=== PATIENT | male | born 1975 | race African-American/Black ===

== ENCOUNTER 2020-12-10 08:21 | Outpatient (CLI) | payer OTHER ==
[2020-12-10 09:18] LABS: #Eosinphils 0.2 10x3/uL (0.0-0.5); #Monocytes 0.5 10x3/uL (0.0-1.1); #Neutrophils 2.4 10x3/uL (1.5-8.4); %Basophils 0.7 % (0.0-2.0); %Eosinophils 2.7 % (0.0-6.0); %Lymphocytes 44.5 % (18.0-47.0); %Monocytes 8.3 % (0.0-10.0); %Neutrophils 43.6 % (40.0-75.0); Hemoglobin 13.3 g/dL (13.5-17.5); Mean Corpuscular HGB CONC 31.1 g/dL (32.0-36.0); Mean Corpuscular Hemoglobin 24.1 pg (27.0-33.0); Mean Corpuscular Volume 77.5 fl (81.2-95.1); Mean Platelet Volume 8.9 fl (7.4-10.4); Platelet Count 297 10x3/uL (150-450); RBC Distribution Width 15.6 % (11.5-14.5); Red Blood Cell (RBC) Count 5.51 10x6/uL (4.32-5.72); White Blood Cell (WBC) Count 5.5 10x3/uL (3.5-10.5)
[2020-12-10 09:35] LABS: Anion Gap 11 mmol/L (10-20); BUN (Urea Nitrogen) 12 mg/dL (8.9-20.6); Calc. Creatinine Clearance 0 mL/min (70-130); Calcium 9.7 mg/dL (7.8-10.44); Carbon Dioxide 27 mmol/L (22-29); Chloride 104 mmol/L (98-107); Glucose 99 mg/dL (70-105); Potassium 4.1 mmol/L (3.5-5.1); Sodium 138 mmol/L (136-145)
[2020-12-10 16:59] LABS: SARS-CoV-2 PCR by NAA Not Detected (NotDetected)
== END 2020-12-10 08:22 | disposition home or self-care (01) ==
LOC: LABBT 08:21
PROVIDERS: ATTEND Surgery
DX: Z01.812 Encounter for preprocedural laboratory examination (principal); K43.2 Incisional hernia without obstruction or gangrene; Z20.822 Contact with and (suspected) exposure to COVID-19
CPT/HCPCS: 80048; 85025; U0003; U0005

== ENCOUNTER 2020-12-15 07:09 | Day surgery (SDC) | payer OTHER ==
[2020-12-11 10:51] VITALS: BMI 33.6
[2020-12-15] MEDS ORDERED: ceFAZolin 2 GM/DEX 5% 100 ML BAG ONE (08:15)
[2020-12-15] MEDS ORDERED: Midazolam HCl 2 mg/2 ml Vial ONE (09:52)
[2020-12-15] MEDS ORDERED: Fentanyl 100 MCG/2 ML VIAL ONE ×3 (09:52→12:40)
[2020-12-15] MEDS ORDERED: Bupivacaine 0.25% HCL 30 ML VIAL ONE (09:53)
[2020-12-15] MEDS ORDERED: Lidocaine 1% w/Epinephrine 1:100K 20 ML VIAL ONE (09:53)
[2020-12-15] MEDS ORDERED: Rocuronium Bromide 10 MG/ML (10ML VIAL) ONE (10:01)
[2020-12-15] MEDS ORDERED: PROPOFOL 200 MG/20 ML VIAL ONE (10:01)
[2020-12-15] MEDS ORDERED: Dexamethasone 20 MG/5 ML VIAL ONE (10:01)
[2020-12-15] MEDS ORDERED: Ketorolac Tromethamine 30 MG/ML VIAL ONE (10:01)
[2020-12-15] MEDS ORDERED: Glycopyrrolate 0.2 MG/ML 5 ML SYRINGE ONE (10:01)
[2020-12-15] MEDS ORDERED: Lidocaine 1% PF 5 ML VIAL ONE (10:01)
[2020-12-15] MEDS ORDERED: Ondansetron PF 4 MG/2 ML Vial ONE (10:01)
[2020-12-15] MEDS ORDERED: HYDROcodone/Acetaminophen 5/325 mg Tablet ONE ×2 (14:04)
[2020-12-15] MEDS ORDERED: Ondansetron ODT 4 MG TAB ONE (14:55)
== END 2020-12-15 15:30 | disposition home or self-care (01) ==
LOC: SDC 07:09
PROVIDERS: ATTEND Surgery
PROC: 0DN84ZZ Release Small Intestine, Percutaneous Endoscopic Approach (ICD-10-PCS; principal; 2020-12-15)
DX: K66.0 Peritoneal adhesions (postprocedural) (postinfection) (principal); Z98.890 Other specified postprocedural states
CPT/HCPCS: J1100; J1885; J2250; J2405; J2704; J3010; Q0162; S0020